=== PATIENT | male | born 1990 | race Caucasian/White ===

== ENCOUNTER 2020-10-27 03:11 | Emergency (ER) | payer MEDICAID ==
[~2020-10-27] VITALS: Ht 185.4 cm; Wt 105.0 kg
[2020-10-27] MEDS ORDERED: ONDANSETRON HCL 4MG/2ML INJ IV STA (03:46)
[2020-10-27] MEDS ORDERED: KETOROLAC 30MG/ML VIAL IV STA (03:46)
[2020-10-27] MEDS ORDERED: SODIUM CHLORIDE 0.9% 1,000 ML IV ONE (04:00)
[2020-10-27 04:07] LABS: BASOPHILS % 0.3 % (0.0-2.0); EOSINOPHILS % 0.6 % (0.0-5.0); HEMATOCRIT. 45.3 % (42.0-52.0); HEMOGLOBIN. 15.6 g/dL (14.0-18.0); LYMPHOCYTES % 16.3 % (20.0-50.0); MEAN CORPUSCULAR HEMOGLOBIN 30.2 pg (28.0-32.0); MEAN CORPUSCULAR VOLUME 87.6 fL (80.0-94.0); MONOCYTES % 6.2 % (2.0-8.0); NEUTROPHILS % 76.6 % (40.0-76.0); PLATELET 227 x1000/uL (130-400); RED BLOOD CELL COUNT 5.16 mill/uL (4.7-6.1); RED CELL DISTRIBUTION WIDTH 12.3 % (11.6-14.6)
[2020-10-27 04:17] LABS: CHLORIDE 108 mEq/L (98-107)
[2020-10-27 05:06] LABS: CLARITY URINE CLOUDY (CLEAR); COLOR URINE DARK YELLOW (YELLOW); KETONES URINE 1+ (NEGATIVE); LEUKOCYTE ESTERASE URINE TRACE (NEGATIVE); NITRITE URINE NEGATIVE (NEGATIVE); OCCULT BLOOD URINE 3+ (NEGATIVE); PROTEIN URINE 1+ (NEGATIVE); SPECIFIC GRAVITY URINE 1.026 (1.005-1.030); UROBILINOGEN URINE 0.2 E.U./dL (0.2-1.0)
[2020-10-27] MEDS ORDERED: IBUP-2030 PO (06:08)
[2020-10-27] MEDS ORDERED: PYR200 MT (06:08)
[2020-10-27] MEDS ORDERED: TAMS-11 MT (06:08)
[2020-10-27] MEDS ORDERED: ONDA4TAB5 PO (06:08)
[2020-10-27 07:08] VITALS: BP 119/62
== END 2020-10-27 07:10 | disposition home or self-care (01) ==
LOC: ER 03:11
DX: R10.12 Left upper quadrant pain (principal); Z87.442 Personal history of urinary calculi
CPT/HCPCS: 36415; 76770; 80053; 81003; 85025; 96361; 96374; 96375; 99284; J1885; J2405; J7030